=== PATIENT | female | born 1985 | race African-American/Black ===

== ENCOUNTER → 2019-04-09 | Outpatient (CLI) | payer OTHER ==
[2016-04-17 16:42] VITALS: BP 147/74
[~2019-04-09] MED LIST: GADOBUTROL 7.5 MMOL/7.5 ML VIAL IV ONE
--- NOTE | 2019-04-09 09:48 | KCIC ---
MRI Brain with and without contrast History: Elevated prolactin level, irregular periods Technique: Multiplanar, multi sequential pre and postcontrast MR imaging was performed of the brain. Comparison: None Findings: There is a somewhat heterogeneous, somewhat heterogeneously enhancing mass protruding superior to the plane of the superior pituitary gland on the right in the paracentral region along the right aspect of the isthmus, measures about 0.87 cm transverse by about 0.7 cm CC by 0.88 cm AP. This is hypointense on the T2 sequence. There is no evidence of recent infarct or cytotoxic edema. The ventricles, sulci, and cisterns are within normal limits in size and configuration. There is no significant midline shift, intraaxial mass effect, or focal abnormal extra-axial fluid collection. There are a few tiny foci of nonenhancing T2 and FLAIR hyperintense signal of the bifrontal deep white matter. There is no nodular parenchymal or leptomeningeal enhancement. There is preservation of the major intracranial flow-voids at the skull base. The cerebellar tonsils are normal in location. There is no significant abnormality of the pineal gland. There is patchy [id number] ethmoid air cell mucosal thickening, also minimal right maxillary sinus mucosal thickening, left maxillary sinus poorly evaluated due to susceptibility artifact. Frontal sinus is not significantly pneumatized. The mastoid air cells are aerated. There is preserved marrow signal of the clivus. Impression: 1. There is a somewhat heterogeneously enhancing mass up to 0.8 cm greatest dimension of the right paracentral pituitary gland protruding superiorly to the plane of the pituitary gland along the right aspect of the infundibulum, primary consideration microadenoma given history. 2. There are a few tiny foci of likely nonspecific gliosis of the bifrontal deep white matter. White matter changes can be seen in patients with migraine headaches if corresponding history, degree of findings which could be seen in asymptomatic individuals. 3. There is paranasal sinus mucosal thickening as described. Electronically signed by: Pablo Cho MD (04/09/2019 9:45 AM) [id number]
== END | disposition home or self-care (01) ==
LOC: KCIC MRI 07:57
PROVIDERS: ATTEND Obstetrics & Gynecology
DX: G43.909 Migraine, unspecified, not intractable, without status migrainosus (principal); G93.89 Other specified disorders of brain; E23.6 Other disorders of pituitary gland
CPT/HCPCS: 70553; A9585

== ENCOUNTER 2019-07-28 10:13 | Emergency (ER) | payer OTHER ==
[~2019-07-28] VITALS: Ht 152.4 cm; Wt 66.2 kg
[2019-07-28 11:00] VITALS: BP 142/67
--- NOTE | 2019-07-28 11:06 | PHYS DOC ---
Past Medical History Past Medical History: No Pertinent History Past Surgical History: Other Additional Past Surgical Histo: PYELO Alcohol Use: Occasionally Drug Use: None Adult General Chief Complaint Chief Complaint: COUGH HPI HPI Patient is a 33 year old female who presents with runny nose sinus pressure headache and cough this been ongoing since Tuesday. The patient states that she has tried Tylenol Sinus at home however that is not helped. States her pain is 4/10 in severity and pressure. Review of Systems Review of Systems Constitutional: Denies fever or chills [] Eyes: Denies change in visual acuity, redness, or eye pain [] HENT: Reports nasal congestion Respiratory: Reports cough Cardiovascular: No additional information not addressed in HPI [] GI: Denies abdominal pain, nausea, vomiting, bloody stools or diarrhea [] : Denies dysuria or hematuria [] Musculoskeletal: Denies back pain or joint pain [] Integument: Denies rash or skin lesions [] Neurologic: Reports headache, denies focal weakness or sensory changes [] Endocrine: Denies polyuria or polydipsia [] Complete systems were reviewed and found to be within normal limits, except as documented in this note. Allergies Allergies Allergies Coded Allergies Type Severity Reaction Last Updated Verified Sulfa (Sulfonamide Antibiotics) Allergy Unknown 03/07/14 Yes Physical Exam Physical Exam Constitutional: Well developed, well nourished, no acute distress, non-toxic appearance. [] HENT: Normocephalic, atraumatic, bilateral external ears normal, oropharynx moist, no oral exudates, nose normal. [] Eyes: PERRLA, EOMI, conjunctiva normal, no discharge. [] Neck: Normal range of motion Skin: Warm, dry, no erythema, no rash. [] Back: No tenderness, no CVA tenderness. [] Extremities: No tenderness, no cyanosis, no clubbing, ROM intact, no edema. [] Neurologic: Alert and oriented X 3, normal motor function, normal sensory function, no focal deficits noted. [] Psychologic: Affect normal, judgement normal, mood normal. [] EKG EKG [] Radiology/Procedures Radiology/Procedures [] Course & Med Decision Making Course & Med Decision Making Pertinent Labs and Imaging studies reviewed. (See chart for details) Recommended that patient drink plenty of fluids, get Zyrtec, Mucinex, and Flonase over the counter. Patient is agreeable. Dragon Disclaimer Dragon Disclaimer This electronic medical record was generated, in whole or in part, using a voice recognition dictation system. Departure Departure Impression: Primary Impression: Upper respiratory infection, viral Disposition: HOME, SELF-CARE Condition: STABLE Referrals: NO PCP (PCP) Patient Instructions: Upper Respiratory Infection, Adult Additional Instructions: Thank you for visiting [facility]. We appreciate you trusting us with your care. If any additional problems come up don't hesitate to return to visit us. Please follow up with your primary care provider so they can plan additional care if needed and know about the problem that you had. If symptoms worsen come back to the Emergency Department. Any concerning symptoms that start such as chest pain, shortness of air, weakness or numbness on one side of the body, running high fevers or any other concerning symptoms return to the ER. Please drink plenty of fluids, get Zyrtec, Mucinex, and Flonase over the counter. Follow label instructions. JUANI KUMAR APRN Jul 28, 2019 11:05
== END 2019-07-28 11:25 | disposition home or self-care (01) ==
LOC: ER 10:13
DX: J06.9 Acute upper respiratory infection, unspecified (principal); R51 Headache; Z88.2 Allergy status to sulfonamides
CPT/HCPCS: 99281